=== PATIENT | female | born 1975 | race Caucasian/White ===

== ENCOUNTER 2016-11-04 18:28 | Emergency (ER) | payer OTHER ==
[~2016-11-04] VITALS: Ht 162.6 cm; Wt 60.0 kg
[~2016-11-04 18:28] MED LIST: ACET-2178
[2016-11-04] MEDS: BACITRACIN ZINC OINT UDPKT TOP ONE (19:15)
[2016-11-04] MEDS: HYDROCODONE/APAP 7.5/325MG 1 TAB TABLET PO NR (20:45)
[2016-11-04 21:45] VITALS: BP 121/69
[2016-11-04] MEDS: ACETAMINOPHEN 500MG TABLET PO NR (21:45)
== END 2016-11-04 22:35 | disposition home or self-care (01) ==
LOC: ER 18:29
DX: S63.617A Unspecified sprain of left little finger, initial encounter (principal); S00.83XA Contusion of other part of head, initial encounter; S00.01XA Abrasion of scalp, initial encounter; S00.03XA Contusion of scalp, initial encounter; S01.01XA Laceration without foreign body of scalp, initial encounter; F17.210 Nicotine dependence, cigarettes, uncomplicated; Y08.89XA Assault by other specified means, initial encounter; Y93.89 Activity, other specified; Y92.89 Other specified places as the place of occurrence of the external cause; Y99.8 Other external cause status; Z88.8 Allergy status to other drugs, medicaments and biological substances
CPT/HCPCS: 12001; 70450; 70486; 73130; 81025; 99284; Z7610

== ENCOUNTER 2023-09-08 17:04 | Emergency (ER) | payer OTHER ==
[~2023-09-08] VITALS: Ht 167.6 cm; Wt 65.0 kg
[~2023-09-08 17:04] MED LIST changes: -ACET-2178; +TOPUD
[2023-09-08 17:08] VITALS: BP 119/86; PULSE 98; RESP 16; TEMP 98.5; O2SAT 98
== END 2023-09-08 19:50 | disposition home or self-care (01) ==
LOC: ER 17:04
DX: B34.9 Viral infection, unspecified (principal); J45.909 Unspecified asthma, uncomplicated; I10 Essential (primary) hypertension; R56.9 Unspecified convulsions; Z98.51 Tubal ligation status
CPT/HCPCS: 71045; 99283